=== PATIENT | female | born 1955 | race Caucasian/White ===

== ENCOUNTER 2016-08-06 08:21 | Day surgery (SDC) | payer BC ==
[~2016-08-06 08:21] MED LIST: PRILOSEC20 MG PO; RESTORIL15 M1 PO; VICOPROFEN PO; WARFARIN6 MG PO; ZANAFLEX4 MG PO
[2016-08-06 09:28] LABS: PROTHROMBIN TIME 10.8 SECONDS (9.0-12.5)
[2016-08-06 10:56] VITALS: BP 132/76
== END 2016-08-06 10:42 | disposition home or self-care (01) | DRG 392 ==
LOC: ENDO 08:21
PROVIDERS: ATTEND Internal Medicine Gastroenterology
PROC: 0DBL8ZX Excision of Transverse Colon, Via Natural or Artificial Opening Endoscopic, Diagnostic (ICD-10-PCS; principal; 2016-08-06)
PROC: 0DBN8ZX Excision of Sigmoid Colon, Via Natural or Artificial Opening Endoscopic, Diagnostic (ICD-10-PCS; 2016-08-06)
DX: R10.11 Right upper quadrant pain (principal); F32.9 Major depressive disorder, single episode, unspecified; K59.00 Constipation, unspecified; D12.5 Benign neoplasm of sigmoid colon; D12.3 Benign neoplasm of transverse colon; K64.8 Other hemorrhoids; K57.30 Diverticulosis of large intestine without perforation or abscess without bleeding; K64.4 Residual hemorrhoidal skin tags; F41.9 Anxiety disorder, unspecified; K21.9 Gastro-esophageal reflux disease without esophagitis; Z86.718 Personal history of other venous thrombosis and embolism; Z85.41 Personal history of malignant neoplasm of cervix uteri; Z86.010 Personal history of colon polyps